=== PATIENT | male | born 1995 | race Caucasian/White ===

== ENCOUNTER 2017-06-06 19:38 | Emergency (ER) | payer SELFPAY ==
[~2017-06-06] VITALS: Ht 190.5 cm; Wt 113.4 kg
[2017-06-06 20:00] VITALS: BP 135/61
[2017-06-06] MEDS ORDERED: METH4TAB2 PO (20:41)
[2017-06-06] MEDS ORDERED: CYCL5TAB PO (20:41)
[2017-06-06] MEDS ORDERED: HYDROcodone/APAP 10/325 1 TAB TABLET PO ONE (21:00)
--- NOTE | 2017-06-06 23:26 | PHYS DOC ---
Past Medical History Past Medical History: Schizophrenia Past Surgical History: Cholecystectomy Additional Information: PPD Alcohol Use: Occasionally Drug Use: None Adult General Chief Complaint Chief Complaint: LOWER EXT PAIN HPI HPI Patient is a 22 year old male who presents with pain that starts in his lower back and shoots down his buttocks and leg. He states that last week he twisted his back when a vehicle he was starting to get into moved unexpectedly. He did have a sore back for a few days resolved and he didn't think anything about it then 2 days ago he developed a shooting pain. He denies having history of sciatica or other injury. He has not taken anything that has helped his pain, although he does say that rest does relieve it to an extent. Patient denies foot drop or spontaneous loss of bowel or bladder. Review of Systems Review of Systems Constitutional: Denies fever or chills [] Respiratory: Denies cough or shortness of breath [] Cardiovascular: No additional information not addressed in HPI [] Musculoskeletal: History of present illness Integument: Denies rash or skin lesions [] Neurologic: Denies headache, focal weakness or sensory changes [] Endocrine: Denies polyuria or polydipsia [] All other systems were reviewed and found to be within normal limits, except as documented in this note. Current Medications Current Medications Current Medications Medications (Trade) Dose Ordered Sig/[facility] Start Time Stop Time Status Last Admin Dose Admin Acetaminophen/ Hydrocodone Bitart (Lortab 10/325) 1 tab 1X ONCE 06/06/17 21:00 06/06/17 21:00 DC 06/06/17 20:44 1 TAB Allergies Allergies Allergies Coded Allergies Type Severity Reaction Last Updated Verified morphine Allergy Intermediate Rash 06/06/17 Yes Physical Exam Physical Exam Constitutional: Well developed, well nourished, no acute distress, non-toxic appearance. [] Neck: Normal range of motion, no tenderness, supple, no stridor. [] Cardiovascular:Heart rate regular rhythm, no murmur [] Lungs & Thorax: Bilateral breath sounds clear to auscultation [] Abdomen: Bowel sounds normal, soft, no tenderness, no masses, no pulsatile masses. [] Skin: Warm, dry, no erythema, no rash. [] Back: Tenderness with palpation over the right SI joint with pain radiating down the buttocks and into his thigh and calf, no point spinal tenderness on exam, no step-offs noted Extremities: no cyanosis, no clubbing, ROM intact, no edema. [] Neurologic: Alert and oriented X 3, normal motor function, normal sensory function, no focal deficits noted. [] Psychologic: Affect normal, judgement normal, mood normal. [] Current Patient Data Vital Signs Vital Signs Date Time Temp Pulse Resp B/P (MAP) Pulse Ox O2 Delivery O2 Flow Rate FiO2 06/06/17 20:44 18 98 06/06/17 20:00 97.9 74 Room Air 97.9 EKG EKG [] Radiology/Procedures Radiology/Procedures [] Course & Med Decision Making Course & Med Decision Making Pertinent Labs and Imaging studies reviewed. (See chart for details) []1. Sciatica Please take medication as prescribed. The Flexeril might make you very sleepy. Take precautions before taking this medication. Return to the ED if worsening. Dragon Disclaimer Dragon Disclaimer This electronic medical record was generated, in whole or in part, using a voice recognition dictation system. Departure Departure Impression: Primary Impression: Sciatica Disposition: 01 HOME, SELF-CARE Condition: STABLE Patient Instructions: Sciatica Additional Instructions: Patient is to follow-up with his primary care provider in one week if not improving or return to the ED if worsening. You have been given a muscle relaxant which can cause excessive sleepiness. Please make arrangements for childcare worker if you are taking this medication with children at home. Scripts Methylprednisolone (MEDROL) 4 Mg Tab.ds.pk 1 PKG PO UD, #1 PKG Prov: FLIP MARINA APRN 06/06/17 Cyclobenzaprine Hcl (CYCLOBENZAPRINE HCL) 5 Mg Tablet 1 TAB PO QHS, #10 TAB Prov: FLIP MARINA [employer]AMEL [employer]ORING OPERATOR 06/06/17 FLIP MARINA APRN Jun 06, 2017 23:26
== END 2017-06-06 21:00 | disposition home or self-care (01) ==
LOC: ER 19:38
DX: M54.41 Lumbago with sciatica, right side (principal); F20.9 Schizophrenia, unspecified; F17.200 Nicotine dependence, unspecified, uncomplicated; Z90.49 Acquired absence of other specified parts of digestive tract; X50.9XXA Other and unspecified overexertion or strenuous movements or postures, initial encounter; Y93.89 Activity, other specified; Y99.8 Other external cause status; Y92.89 Other specified places as the place of occurrence of the external cause
CPT/HCPCS: 99283

== ENCOUNTER 2021-10-05 08:50 | Emergency (ER) | payer OTHER ==
[~2021-10-05] VITALS: Ht 190.5 cm; Wt 125.0 kg
[2021-10-05 08:50] VITALS: BP 156/75
[~2021-10-05 08:50] MED LIST: CYCL5TAB PO; METH4TAB2 PO
--- NOTE | 2021-10-05 09:09 | PHYS DOC ---
Past Medical History Past Medical History: Schizophrenia Past Surgical History: Cholecystectomy Smoking Status: Current Every Day Smoker Alcohol Use: Occasionally Drug Use: None Adult General Chief Complaint Chief Complaint: FOOT INJURY PAIN HPI HPI Patient is a 26 year old male presenting to the emergency department for evaluation of right foot pain that started 2 days ago after kicking a chair as he said it was not reclining and this made him angry so he kicked it. There is bruising noted but no open wounds or abrasions. He has been able to ambulate on it but it has been painful to do so. Review of Systems Review of Systems Constitutional: Denies fever or chills [] Musculoskeletal: Denies back pain. + joint pain [] Integument: Denies rash or skin lesions [] Neurologic: Denies headache, focal weakness or sensory changes [] All other systems were reviewed and found to be within normal limits, except as documented in this note. Current Medications Current Medications Current Medications Medications (Trade) Dose Ordered Sig/[facility] Start Time Stop Time Status Last Admin Dose Admin Acetaminophen/ Hydrocodone Bitart (Lortab 5/325) 2 tab 1X ONCE 10/05/21 09:15 10/05/21 09:16 DC 10/05/21 09:13 2 TAB Ibuprofen (Motrin) 800 mg 1X ONCE 10/05/21 09:15 10/05/21 09:16 DC 10/05/21 09:12 800 MG Allergies Allergies Allergies Coded Allergies Type Severity Reaction Last Updated Verified morphine Allergy Intermediate Rash 06/06/17 Yes methylphenidate Allergy Unknown 10/05/21 Yes Physical Exam Physical Exam Constitutional: Well developed, well nourished, no acute distress, non-toxic appearance. [] Skin: Bruising noted primarily along the first and second toes and metatarsals Extremities: Pain to palpation throughout entire foot but no bony ankle tenderness or proximal tib-fib tenderness. Neurologic: Alert and oriented X 3, normal motor function, normal sensory function, no focal deficits noted. [] Current Patient Data Vital Signs Vital Signs Date Time Temp Pulse Resp B/P (MAP) Pulse Ox O2 Delivery O2 Flow Rate FiO2 10/05/21 09:13 18 97 Room Air 10/05/21 08:50 98.1 95 156/75 (102) 98.1 EKG EKG [] Radiology/Procedures Radiology/Procedures [] Course & Med Decision Making Course & Med Decision Making I will check x-ray treat pain and reassess. Patient has a first proximal phalanx toe fracture but no other osseous injury detected. He is neurovascular intact. I explained the diagnosis and treatment for this and he was marleen taped and put in a soft shoe told to follow with primary care provider as an outpatient to ensure improvement and come back to em ergency department sooner with worsening pain neurologic changes or other general concerns. Patient aware and agreeable with plan and verbalized understanding of the above instructions. Dragon Disclaimer Dragon Disclaimer This electronic medical record was generated, in whole or in part, using a voice recognition dictation system. Departure Departure Impression: Primary Impression: Fracture of proximal phalanx of right great toe Disposition: HOME / SELF CARE / HOMELESS Condition: STABLE Referrals: NO PCP (PCP) Patient Instructions: Toe Fracture, [id number] Scripts Hydrocodone Bit/Acetaminophen (HYDROCODONE-APAP 5-325 ) 1 Tab Tablet 1 TAB PO PRN Q6HRS PRN for PAIN, #8 TAB 0 Refills Prov: LEIU DIANA DO 10/05/21 Ibuprofen (IBUPROFEN) 800 Mg Tablet 800 MG PO Q8HRS PRN for INFLAMMATION for 7 Days, #21 TAB Prov: ELIU DIANA DO 10/05/21 Problem Qualifiers Primary Impression: Fracture of proximal phalanx of right great toe Encounter type: initial encounter Fracture type: closed Fracture alignment: nondisplaced Qualified Codes: S92.414A - Nondisplaced fracture of proximal phalanx of right great toe, initial encounter for closed fracture ELIU DIANA DO Oct 05, 2021 09:09
[2021-10-05] MEDS ORDERED: IBUPROFEN 400 MG TABLET. PO ONE (09:15)
[2021-10-05] MEDS ORDERED: HYDROcodone/APAP 5/325MG 1 TAB TABLET PO ONE (09:15)
--- NOTE | 2021-10-05 09:31 | RAD ---
Right foot 3 views. HISTORY: Pain, bruising right first and second toes and metatarsals 3 views were taken of the right foot. There is a nondisplaced fracture at the mid to distal aspect of the proximal phalanx of the right great toe. No other fracture or acute osseous abnormality is noted . There is soft tissue swelling. IMPRESSION: 1. Nondisplaced fracture proximal phalanx right great toe. Electronically signed by: Jackson Carrington MD (10/05/2021 9:29 AM) [facility]
[2021-10-05] MEDS ORDERED: IBUP-1060 PO (09:54)
[2021-10-05] MEDS ORDERED: HYDR-2761 PO (09:54)
== END 2021-10-05 10:02 | disposition home or self-care (01) ==
LOC: ER 08:50
DX: S92.511A Displaced fracture of proximal phalanx of right lesser toe(s), initial encounter for closed fracture (principal); F20.9 Schizophrenia, unspecified; F17.200 Nicotine dependence, unspecified, uncomplicated; Z88.5 Allergy status to narcotic agent; Z88.8 Allergy status to other drugs, medicaments and biological substances; W22.03XA Walked into furniture, initial encounter; Y93.89 Activity, other specified; Y92.89 Other specified places as the place of occurrence of the external cause; Y99.8 Other external cause status
CPT/HCPCS: 29515; 73630; 99283